=== PATIENT | male | born 1970 | race Caucasian/White ===

== ENCOUNTER 2021-01-22 13:24 | Emergency (ER) | payer SELFPAY ==
[~2021-01-22] VITALS: Ht 175.3 cm; Wt 111.1 kg
--- NOTE | 2021-01-22 13:30 | NUR ---
BIBRA40, SLEEPING IN A GUTTER W/ ETOH SMELL. BG 152. 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 PATIENT ASLEEP BUT EASILY AROUSABLE. NO DISTRESS NOTED. NEEDS ATTENDED.
[2021-01-22] MEDS ORDERED: IV NS 0.9% 1,000 ML BAG IV ONE (14:30)
[2021-01-22 14:44] LABS: BASOPHILS # (AUTO) 0.1 K/uL (0.0-0.2); BASOPHILS % (AUTO) 0.7 % (0.0-2.0); EOSINOPHILS % (AUTO) 0.1 % (0.0-6.0); HEMATOCRIT 48 % (39-51); HEMOGLOBIN 16.5 g/dL (13.5-17.5); LYMPHOCYTES # (AUTO) 1.3 K/uL (0.8-4.8); LYMPHOCYTES % (AUTO) 13.7 % (20.0-44.0); MEAN CORPUSCULAR HGB CONC 35 g/dl (31.0-36.0); MEAN CORPUSCULAR VOLUME 89 fL (80-96); MONOCYTES # (AUTO) 0.9 K/uL (0.1-1.30); MONOCYTES % (AUTO) 9.2 % (2.0-12.0); NEUTROPHILS # (AUTO) 7.2 K/uL (1.8-8.9); NEUTROPHILS % (AUTO) 76.3 % (43.0-81.0); PLATELET COUNT (AUTO) 215 K/uL (150-450); RED BLOOD CELL COUNT(AUTO) 5.36 MIL/uL (4.5-6.0); WHITE BLOOD COUNT (AUTO) 9.4 K/uL (4.3-11.0)
[2021-01-22 14:49] LABS: CALCIUM, SERUM 7.7 mg/dL (8.5-10.1); POTASSIUM 4.8 mmol/L (3.5-5.1)
--- NOTE | 2021-01-22 16:17 | NUR ---
SS Consult: SS Consult requested for ETOH abuse & Homelessness. The pt. is a 41-year old male. The pt. appears disheveled is A&O X3 and makes poor eye contact. Pt.'s speech and thought process are WNL. Pt.'s mood is depressed. HUMBLE explored pt.'s living situation. Pt. states he has been homeless for a "2 years". HUMBLE explored pt.'s mental health Hx. Pt. denies any mental health illness or psychotropic medications. SW explored pt.'s drug & ETOH use. Patient stated alcohol is a problem for him and he drinks every week. SW offered pt. referral to rehab and pt. refused. Pt. states he is ambulatory. SW explored pt.'s support system. Pt. states his entire family is in [facility]. D/C PLAN: HUMBLE offered pt. mcc placement and pt. accepted. Once medically cleared, pt. will go to [facility] [[address] [facility] [address]; [phone]] Intake is after 4:30 pm daily. Pt. will go via bus and pr. expressed understanding and is agreeable. Pt. signed homeless waiver and it was placed in the chart. HUMBLE provided pt. with homeless resources and he accepted them : Year-round shelters: [facility] [address] [place] [address] ; [facility] [place] [address] [place] [address]; [facility] Iobmazw[address] [facility] [address] Winter Shelters: Andre Rossi Provider: [facility] [place] Address: [address] [place] [address], [address] # of Beds: 47 Population Served: [facility] 6 | [facility] Raissa Hedrick Slinger Provider: [facility] Address: [address], [address] # of Beds: 66 Population Served: [facility] VERTILAS Slinger Provider: [facility] Address: [id number] [place] [address], [facility][note 3] # of Beds: 56 Population Served: [facility] Gabriel Teresa Park Provider: /[facility] Address: [address] [facility], [address] # of Beds: 49 Population Served: [facility] 8 | [place] Provider: [facility] Address: [address], [address] # of Beds: 37 Population Served: [facility]: [facility]: [address] [place] ; [facility] [address] [facility] ; [facility] [address] [facility] . Food Resources: [place] [facility] at [facility]- [address] [facility]; Meet Each Need with Dignity ([facility]) [address] [facility]; [facility] [address] [facility]; [facility] 8556 [facility]. Mental Health resources provided: [facility] [address] [place], [place] [address] ; [facility] [address] [facility] [address], [place], [place] [id number] ; Laveen Trung [facility] [address], [place] [phone] ; [facility] [address] [place], [place] [address] Healthcare Clinics: [facility] [address] [facility], [address] [place]. [place] ; [facility] [address] [facility] [address] [place] [address]; [facility] [address] [facility]. [place] [phone]) [phone] Counseling--Outpatient [facility] [address] [facility], [address] [place], [place] [id number] (Specializes in in-depth psychotherapy for emotional distress: anxiety, depression, interpersonal conflicts, life transitions, childhood abuse) [facility] [address] [place], [place] [address] (Assist with solving problem marital difficulties, separation & divorce, aging parents, & grief, chronic & terminal illness) [facility] [address] [place] [address] (Deal with loss & grief, anxiety, marital difficulties) Homebound/Mental Health Services [address] [facility] [address] [place], [place] [address] (Provide in-home mental services to people who are incapable of leaving their homes) [facility] Elder[facility] Senior Service/Resource Center [address] [place] [address] [facility] [address] [facility] [place] [place] [address] PSYCHIATRIC OUTPATIENT SERVICES [facility] Partial Hospitalization and Intensive Outpatient Program (Managed Care and [place] Only)[address] [facility], [facility] [phone] [facility] Partial Hospitalization and Outpatient Hdcmcec24435 [facility] [address] [employer], [place] [phone] [facility] Ioa86682 [facility] [address] [place], [place] [phone] [facility] Partial Hospitalization and Outpatient Hzedoxq90641 [place], [phone] Substance Abuse resources provided included: [facility] Substance Abuse Self-Helpline (SAS) ; C[facility] [address] [facility] [place] [address] ; [facility] [address] [facility] [address] ; [facility] Rehabilitation Program [address] [facility] [address] ; [facility] [address] [facility] [phone] ; [facility] [address] [facility] [address] ; [facility] [address] [facility] [phone] ; [facility] Substance Abuse Helpline([facility] ; [facility] Family [facility] ; [facility]; [facility]; [facility] [place]; [facility] [place]aney; [facility] [place]; [facility] [address] [place]; [facility]; [facility]'s [place] [place]; Alcoholics Anonymous -SFV; Fn-Qhno-Jenqkxc ; Marijuana Anonymous -SFV; Narcotics Anonymous www.[email or web address].org; Addendum: 01/22/21 at 1618 by AHIDALGO Pt. refused to sign homeless waiver *
--- NOTE | 2021-01-22 18:30 | NUR ---
attempted to walk the patient, patient still has unsteady gait.
--- NOTE | 2021-01-22 20:46 | NUR ---
PT AAOX4, AMBULATORY WITH STEADY GAIT NOTED. PT AAOX4, NO ACUTE DISTRESS NOTED, RESP EVEN AND UNLABORED. PT DENIES PAIN OR DISCOMFORT AT THIS TIME. PT DENIES SI/HI AT THIS TIME.
--- NOTE | 2021-01-22 21:22 | NUR ---
IV removed. Catheter intact and site benign. Pressure and 4x4 applied to site. No bleeding noted. Patient discharged to home in stable condition. Written and verbal after care instructions given. Patient verbalizes understanding of instruction. ambulatory with a steady gait noted. pt family at bedside to take pt home.
[2021-01-22 21:23] VITALS: BP 133/69
== END 2021-01-22 21:24 | disposition home or self-care (01) ==
LOC: ER 14:38 → EDBD 14:38 → ER 21:24
DX: F10.129 Alcohol abuse with intoxication, unspecified (principal); I44.4 Left anterior fascicular block; Y90.9 Presence of alcohol in blood, level not specified
CPT/HCPCS: 36415; 71045; 80048; 85025; 93005; 96360; 99285; J7030